=== PATIENT | male | born 1965 | race Two or more races ===

== ENCOUNTER 2022-06-26 13:56 | Emergency (ER) | payer OTHER ==
[~2022-06-26] VITALS: Ht 175.3 cm; Wt 93.2 kg
[2022-06-26 14:26] VITALS: BP 123/72
== END 2022-06-26 16:00 | disposition home or self-care (01) ==
LOC: EMS 14:01
DX: R13.10 Dysphagia, unspecified (principal); F32.A Depression, unspecified
CPT/HCPCS: 70490; 99284; Z7502